=== PATIENT | female | born 1995 | race Two or more races ===

== ENCOUNTER 2023-01-11 13:02 | Emergency (ER) | payer OTHER ==
[~2023-01-11] VITALS: Ht 162.6 cm; Wt 116.6 kg
[2023-01-11] MEDS ORDERED: ZOFRAN8 MG (13:14)
[2023-01-11] MEDS ORDERED: CIPRO500 MG PO (13:14)
[2023-01-11] MEDS ORDERED: PEPCID20 MG PO (13:15)
[2023-01-11] MEDS ORDERED: ABATINEX680 MG PO (13:16)
[2023-01-11] MEDS ORDERED: GLYCOPYRROLATE1 MG PO (13:16)
== END 2023-01-11 15:54 | disposition home or self-care (01) ==
LOC: ER 13:02
DX: K52.9 Noninfective gastroenteritis and colitis, unspecified (principal)

== ENCOUNTER 2023-05-09 22:40 | Emergency (ER) | payer OTHER ==
[~2023-05-09] VITALS: Ht 162.6 cm; Wt 109.8 kg
[~2023-05-09 22:40] MED LIST: ABATINEX680 MG PO; CIPRO500 MG PO; GLYCOPYRROLATE1 MG PO; PEPCID20 MG PO; ZOFRAN8 MG
== END 2023-05-10 04:04 | disposition home or self-care (01) ==
LOC: ER 22:40
DX: K52.89 Other specified noninfective gastroenteritis and colitis (principal)

== ENCOUNTER 2023-07-17 00:37 | Emergency (ER) | payer OTHER ==
[~2023-07-17] VITALS: Ht 162.6 cm; Wt 110.2 kg
== END 2023-07-17 02:21 | disposition home or self-care (01) ==
LOC: ER 00:37
DX: S61.230A Puncture wound without foreign body of right index finger without damage to nail, initial encounter (principal); X58.XXXA Exposure to other specified factors, initial encounter; Y93.89 Activity, other specified; Y92.69 Other specified industrial and construction area as the place of occurrence of the external cause; Y99.8 Other external cause status

== ENCOUNTER 2023-08-24 09:30 | Outpatient (CLI) | payer OTHER | END 2023-08-24 09:40 | disposition home or self-care (01) | LOC: PPH VACUNA 09:30 | PROVIDERS: ATTEND Emergency Medicine Pediatric Emergency Medicine | DX: Z23 Encounter for immunization (principal) ==

== ENCOUNTER → 2023-08-30 | Emergency (ER) | payer OTHER ==
[~2023-08-30] VITALS: Ht 162.6 cm; Wt 115.7 kg
== END | disposition home or self-care (01) ==
LOC: ER 21:27
DX: L56.8 Other specified acute skin changes due to ultraviolet radiation (principal)

== ENCOUNTER 2023-10-20 14:49 | Emergency (ER) | payer OTHER ==
[~2023-10-20] VITALS: Ht 162.6 cm; Wt 102.1 kg
[2023-10-20 15:52] LABS: HEMATOCRIT 38.2 % (36.0-45.00); HEMOGLOBIN 12.7 g/dL (12.0-15.00); MEAN CELL VOLUME 80.9 fL (80.00-100.00); MEAN CORPUSCULAR HEMOGLOBIN 26.9 pg (27.00-32.0); MEAN CORPUSCULAR HGB CONC 33.2 g/dl (32.0-36.0); PLATELET COUNT 299 K/uL (150-450); RED BLOOD COUNT 4.72 M/uL (4.00-6.00); RED CELL DISTRIBUTION WIDTH 14.7 % (11.5-14.5)
[2023-10-20] MEDS ORDERED: AMOX-CLAV 875-1 EAC1 PO ×2 (18:59→19:20)
== END 2023-10-20 18:34 | disposition home or self-care (01) ==
LOC: ER 14:49
PROVIDERS: Nurse Practitioner Family
DX: J06.9 Acute upper respiratory infection, unspecified (principal); Z20.822 Contact with and (suspected) exposure to COVID-19

== ENCOUNTER 2023-10-30 14:29 | Emergency (ER) | payer OTHER ==
[~2023-10-30] VITALS: Ht 162.6 cm; Wt 117.9 kg
[~2023-10-30 14:29] MED LIST changes: +AMOX-CLAV 875-1 EAC1 PO
[2023-10-30 15:09] LABS: HEMATOCRIT 39.2 % (36.0-45.00); MEAN CELL VOLUME 80.8 fL (80.00-100.00); MEAN CORPUSCULAR HEMOGLOBIN 26.9 pg (27.00-32.0); MEAN CORPUSCULAR HGB CONC 33.3 g/dl (32.0-36.0); PLATELET COUNT 326 K/uL (150-450); RED BLOOD COUNT 4.85 M/uL (4.00-6.00); RED CELL DISTRIBUTION WIDTH 14.5 % (11.5-14.5)
[2023-10-30] MEDS ORDERED: LEVOFLOXACIN750 MG PO (17:38)
[2023-10-30] MEDS ORDERED: MEDROLPACK PO (17:38)
[2023-10-30] MEDS ORDERED: XOPENEX CO1.25 MG/0. IH (17:40)
[2023-10-30] MEDS ORDERED: BUDESONIDE0.5 MG/2 M IH (17:40)
== END 2023-10-30 18:08 | disposition home or self-care (01) ==
LOC: ER 14:29
PROVIDERS: Nurse Practitioner Family
DX: U07.1 COVID-19 (principal); J06.9 Acute upper respiratory infection, unspecified

== ENCOUNTER 2024-05-22 19:09 | Emergency (ER) | payer OTHER ==
[~2024-05-22] VITALS: Ht 162.6 cm; Wt 113.4 kg
[~2024-05-22 19:09] MED LIST changes: +BUDESONIDE0.5 MG/2 M IH; +LEVOFLOXACIN750 MG PO; +MEDROLPACK PO; +XOPENEX CO1.25 MG/0. IH
== END 2024-05-22 19:35 | disposition home or self-care (01) ==
LOC: ER 19:09
DX: S61.222A Laceration with foreign body of right middle finger without damage to nail, initial encounter (principal); W26.0XXA Contact with knife, initial encounter; Y93.89 Activity, other specified; Y92.010 Kitchen of single-family (private) house as the place of occurrence of the external cause

== ENCOUNTER 2024-07-01 20:35 | Inpatient (IN) | payer OTHER ==
[~2024-07-01] VITALS: Ht 162.6 cm; Wt 104.3 kg
--- NOTE | 2024-07-01 20:40 | NUR ---
SE RECIBE PTE FEMENIAN DE 29 ANOS AAOX3 QUIEN REFIERE DOLOR EPIGASTRICO Y VOMITOS LOS CUALES INICIAN HOY EN LA TARDE PTE INDICA ESTOS SINTOMAS EMPEORAN L[place] DE [place] COMIDO. SE MONITOREAN S/V Y SE UBICA EN TRIAGE PED
[2024-07-01] MEDS ORDERED: MEPERIDINE HCL/PF 25 MG/ML VIAL IV ONE (21:00)
[2024-07-01] MEDS ORDERED: 0.9 % SODIUM CHLORIDE 1,000 ML IV SCH (21:00)
--- NOTE | 2024-07-01 21:05 | NUR ---
PTE EVALUADO POR MD BRE [facility] [facility]. SE EDUCA A PTE SOBRE EL SMIMO Y PTE REFEIRE ENTDER. SE LLEVA ACABO ORDENES BAJO MEDIDAS ACEPTICAS. PTE PEND A RESULTADOS DE LABS.
[2024-07-01 21:37] LABS: HEMATOCRIT 41.8 % (36.0-45.00); HEMOGLOBIN 13.8 g/dL (12.0-15.00); MEAN CELL VOLUME 81.7 fL (80.00-100.00); MEAN CORPUSCULAR HEMOGLOBIN 26.9 pg (27.00-32.0); MEAN CORPUSCULAR HGB CONC 32.9 g/dl (32.0-36.0); PLATELET COUNT 276 K/uL (150-450); RED BLOOD COUNT 5.12 M/uL (4.00-6.00); RED CELL DISTRIBUTION WIDTH 14.3 % (11.5-14.5)
[2024-07-01] MEDS ORDERED: METOCLOPRAMIDE HCL 5 MG/ML VIAL ONE (21:50)
[2024-07-01 21:52] LABS: CALCIUM 9.4 mg/dL (8.5-10.1); CREATININE SERUM 0.95 mg/dL (0.55-1.02); GFR 70.56; POTASSIUM 3.85 mEq/L (3.5-5.1)
[2024-07-01] MEDS ORDERED: PIPERACILLIN/TAZOBACTAM SODIUM 3.375 GM VIAL IV ONE ×2 (22:09→22:15)
[2024-07-01] MEDS ORDERED: METOCLOPRAMIDE HCL 5 MG/ML VIAL IV ONE (22:30)
[2024-07-01] MEDS ORDERED: SODIUM CHLORIDE IV SCH (23:45)
[2024-07-01] MEDS ORDERED: KETOROLAC TROMETHAMINE 30 MG VIAL IM PRN (23:45)
[2024-07-02] MEDS ORDERED: FAMOTIDINE/PF 20 MG/2 ML VIAL IV SCH ×3 (00:05→21:00)
[2024-07-02] MEDS ORDERED: KETOROLAC TROMETHAMINE 30 MG VIAL ONE (00:08)
[2024-07-02] MEDS ORDERED: FAMOTIDINE/PF 20 MG/2 ML VIAL ONE (00:10)
[2024-07-02] MEDS ORDERED: ONDANSETRON HCL 2 MG/ML VIAL IV PRN (00:15)
[2024-07-02] MEDS ORDERED: MORPHINE SULFATE 4 MG/ML VIAL IV SCH (00:20)
[2024-07-02 00:46] LABS: HEMATOCRIT 41.4 % (36.0-45.00); HEMOGLOBIN 13.9 g/dL (12.0-15.00); MEAN CELL VOLUME 81.1 fL (80.00-100.00); MEAN CORPUSCULAR HEMOGLOBIN 27.2 pg (27.00-32.0); MEAN CORPUSCULAR HGB CONC 33.5 g/dl (32.0-36.0); PLATELET COUNT 280 K/uL (150-450); RED CELL DISTRIBUTION WIDTH 14.1 % (11.5-14.5)
[2024-07-02 01:00] LABS: URINE APPEARANCE Cloudy; URINE BILIRRUBIN Negative (NEGATIVE); URINE BLOOD Negative; URINE COLOR Yellow; URINE GLUCOSE Negative (NEGATIVE); URINE KETONE 15 (NEGATIVE); URINE LEUKOCYTE Negative; URINE NITRATE Negative; URINE PROTEIN Negative (NEGATIVE); URINE UROBILINOGEN 0.2 E.U./dl
[2024-07-02 01:03] LABS: URINE BACTERIA 258.2 uL (0.0-1933); URINE EPITHELIAL CELLS 17.3 uL (0.0-38.8); URINE RBC 17.1 uL (0.0-20.8); URINE WBC 2.7 uL (0.0-23.2)
[2024-07-02 01:06] LABS: INR 1.02; PARTIAL THROMBOPLASTIN TIME 26.5 SECONDS (22.0-34.0); PROTHROMBIN TIME 10.7 SECONDS (9.0-11.5)
[2024-07-02 01:07] LABS: CALCIUM 9.2 mg/dL (8.5-10.1); CREATININE SERUM 1.1 mg/dL (0.55-1.02); GFR 59.58; POTASSIUM 3.92 mEq/L (3.5-5.1)
[2024-07-02] MEDS ORDERED: METRONIDAZOLE/SODIUM CHLORIDE 500 MG/100 ML PIGGYBACK IV SCH (05:00)
[2024-07-02] MEDS ORDERED: CIPROFLOXACIN IN 5 % DEXTROSE 400 MG/200 ML PIGGYBAG IV SCH ×2 (09:00→21:00)
[2024-07-02] MEDS ORDERED: MORPHINE SULFATE 4 MG/ML CARTRIDGE IV SCH ×2 (13:00→18:00)
[2024-07-04] MEDS ORDERED: SUCRALFATE 1 G TABLET PO SCH (09:00)
[2024-07-04] MEDS ORDERED: SIMETHICONE 125 MG CAPSULE PO SCH (09:00)
[2024-07-04] MEDS ORDERED: MORPHINE SULFATE 4 MG/ML CARTRIDGE IV PRN (14:53)
[2024-07-04] MEDS ORDERED: ACETAMINOPHEN 500 MG GEL..CAP PO PRN (15:00)
[2024-07-04] MEDS ORDERED: 0.9 % SODIUM CHLORIDE 250 ML IV ONE (15:00)
[2024-07-04] MEDS ORDERED: MORPHINE SULFATE 2 MG/ML CARTRIDGE IV ONE (15:00)
[2024-07-04] MEDS ORDERED: MORPHINE SULFATE 2 MG,MORPHINE SULFATE 4 MG IV PRN (15:15)
== END 2024-07-05 10:52 | disposition home or self-care (01) | DRG 419 ==
LOC: ER 20:35 → SURH 23:40
PROVIDERS: Emergency Medicine; Student in an Organized Health Care Education/Training Program; Surgery; ADMIT Internal Medicine; ATTEND Internal Medicine
PROC: BW40ZZZ Ultrasonography of Abdomen (ICD-10-PCS; 2024-07-01)
PROC: BW21ZZZ Computerized Tomography (CT Scan) of Abdomen and Pelvis (ICD-10-PCS; 2024-07-01)
PROC: 0FT44ZZ Resection of Gallbladder, Percutaneous Endoscopic Approach (ICD-10-PCS; principal; 2024-07-03 16:00)
DX: K80.00 Calculus of gallbladder with acute cholecystitis without obstruction (principal)

== ENCOUNTER 2024-08-21 07:20 | Outpatient (CLI) | payer OTHER | END 2024-08-21 08:00 | disposition home or self-care (01) | LOC: PPH VACUNA 07:20 | PROVIDERS: ATTEND Emergency Medicine Pediatric Emergency Medicine | DX: Z23 Encounter for immunization (principal) ==